=== PATIENT | female | born 1975 | race Hispanic/Latino ===

== ENCOUNTER 2016-06-29 07:26 | Outpatient (CLI) | payer BC ==
[2016-06-29 08:32] LABS: Blood Urea Nitrogen 12 mg/dL (7-17)
[2016-06-29] MEDS ORDERED: NACL ONE (09:37)
--- NOTE | 2016-06-29 11:18 | Cat Scan Report ---
CT of the chest with IV contrast. Findings: Comparison is made to the previous study performed on January 04, 2016. The left upper lobe bronchiectasis and pulmonary parenchymal density/scarring is unchanged compared to previous study. Minimal pleural thickening laterally is also stable. There are no pulmonary nodules or masses. Mediastinum and hilar regions are unremarkable. There is no pleural fluid. No axillary adenopathy is seen. No suspicious bony findings are seen. Impression: No evidence of metastatic disease. Stable left upper lobe parenchymal scarring, bronchiectasis, and left pleural scarring.
--- NOTE | 2016-06-29 11:23 | Cat Scan Report ---
CT of the abdomen and pelvis with IV and oral contrast. Findings: Comparison is made to previous study on January 04, 2016. The liver and spleen are normal in size and configuration with no focal abnormalities. The pancreas, and adrenal glands are normal. The kidneys are normal in size and configuration with no evidence of hydronephrosis. Bilateral adnexal cysts are again present, smaller on the right with no appreciable change on the left. There no abnormal fluid collections or mesenteric inflammatory changes. There are no suspicious bony findings. Impression: No evidence of metastatic disease. Bilateral adnexal cysts are again noted with minimal interval change in size on the right.
--- NOTE | 2016-06-29 14:08 | Nuclear Medicine Report ---
BONE SCAN: History: Malignant neoplasm of left breast. Comparison: 01/04/16. After injection of isotope, gamma camera imaging of the bony system was done. There is a normal uptake of isotope throughout the bony structures without areas of significantly increased or decreased uptake. Normal uptake in the urinary system is seen. IMPRESSION: Normal bone scan.
== END 2016-06-29 07:27 | disposition home or self-care (01) ==
LOC: NM 07:26
PROVIDERS: ATTEND Internal Medicine Hematology & Oncology
DX: C50.812 Malignant neoplasm of overlapping sites of left female breast (principal); N83.8 Other noninflammatory disorders of ovary, fallopian tube and broad ligament
CPT/HCPCS: 36415; 71260; 74177; 78306; 82565; 84520; A9503; Q9967

== ENCOUNTER 2017-01-20 08:42 | Outpatient (CLI) | payer BC ==
[2017-01-20 10:00] LABS: Blood Urea Nitrogen 15 mg/dL (7-17)
[2017-01-20] MEDS ORDERED: NACL ONE (10:51)
--- NOTE | 2017-01-20 14:06 | Nuclear Medicine Report ---
Whole body bone scan: Malignancy left breast. Surgery and radiation treatment. Following injection of radionuclide whole body images were obtained approximately 3 hours. There is activity in the urinary tract and a relatively good bone to background ratio. Comparison is made to her prior scan on June 29, 2016. On the current examination there is a focal area of uptake overlying either the medial left clavicle or the left first rib which was not previously present. A focal area of uptake previously present at the right costovertebral junction is no longer identified. The remainder of the bone scan is unchanged and unremarkable. Review of recent CT scan does demonstrate focal bone separation of the anterior left first rib that was not present on her prior scan on June 29, 2016. Impressions: New area of uptake corresponds to apparent bone fracture of left first rib. Resolution of right fourth vertebral costal activity.
--- NOTE | 2017-01-20 16:35 | Cat Scan Report ---
CT CHEST, ABDOMEN AND PELVIS WITH CONTRAST INDICATION: Malignant neoplasm of overlapping sites of left breast. COMPARISON: 06/29/2016 CT. FINDINGS: Chest, abdomen and pelvis CT performed following oral contrast and intravenous administration of 100 cc of Omnipaque 300. CHEST: Stable heart and great vessels. Patent airway. No size significant adenopathy. Bilateral mastectomies and chronic left lung changes/possible postradiation fibrosis again noted as on axial image 105, series 2, amongst others. No new suspicious lung nodules. Normal thyroid. Slight nonspecific distal esophageal prominence/thickening. ABDOMEN: Approximately 1.5 cm hypodensity in the medial segment of the left hepatic lobe inferiorly on axial image 376, series 2 appears unchanged as from 06/16/2015 CT, axial image 339, series 2 and is again not clearly visible and isodense/possibly filled-in on the delayed phase. Remainder liver, spleen, gallbladder, pancreas, adrenals, aorta, IVC and kidneys remain within normal limits. No ascites or significant adenopathy. Opacified GI tract nonobstructive and within normal limits. Normal appendix. Mild colonic stool. Tiny fat containing umbilical hernia. PELVIS: Simple attenuation pelvic free fluid has slightly increased since the prior exam as also adnexal/posterior pelvic cysts measuring up to approximately 3 cm as on axial image 534, series 2, amongst others. Urinary bladder and the uterus again appear within normal limits. Rectosigmoid stool. No size significant adenopathy. Slight lumbar levoscoliosis apex about L3-L4. Few lower thoracic inferior endplate irregularities or Schmorl's nodes. CONCLUSION: No CT evidence of metastatic disease with various incidental findings, as above. Thank you for the opportunity to participate in this patient's care.
== END 2017-01-20 08:43 | disposition home or self-care (01) ==
LOC: NM 08:42
PROVIDERS: ATTEND Internal Medicine Hematology & Oncology
DX: C50.812 Malignant neoplasm of overlapping sites of left female breast (principal); K42.9 Umbilical hernia without obstruction or gangrene; N94.89 Other specified conditions associated with female genital organs and menstrual cycle; M41.86 Other forms of scoliosis, lumbar region; Z90.13 Acquired absence of bilateral breasts and nipples
CPT/HCPCS: 36415; 71260; 74177; 78306; 82565; 84520; A9503; Q9967

== ENCOUNTER 2017-04-27 07:37 | Outpatient (CLI) | payer BC ==
--- NOTE | 2017-04-27 13:40 | PET Report ---
PET/CT:04/27/17 07:37:00 CLINICAL: Breast cancer restaging. RADIOPHARMACEUTICAL: 14.55mCi F18-FDG. COMPARISON: CT CAP 01/20/17 and PET/CT 05/13/11 TECHNIQUE- Following intravenous injection of F-18 FDG and an approximately 60 minute uptake period, CT and PET images from the mid skull to the upper thighs were acquired with the patient in the fasted state. No contrast was administered. The CT protocol used for this PET CT study is designed for attenuation correction and anatomic localization of PET abnormalities. This petrographer CT is not desired to produce and cannot replace, xlvta-us-myk-art diagnostic CT scans with specific imaging protocols for different body parts and indications. Plasma glucose at the time of this test: 93g/dl. The standardized uptake values (SUV) are normalized to patient body weight and indicate the highest activity concentration (SUV max) in a given disease site. FINDINGS: Brain--Physiologic FDG uptake in the visualized regions of the brain. Neck--Physiologic FDG uptake . Chest--Physiologic FDG uptake in mediastinal blood pool and myocardium. Lungs--No abnormal uptake. No pulmonary nodule or mass. Stable left upper lobe scarring. Pleura/pericardium--No abnormal uptake. Thoracic nodes--No abnormal uptake. Hepatobiliary--No abnormal uptake. Liver background SUV mean, as a reference for comparing FDG studies, is 2.1 compared to 2.9 on the last exam. No liver mass. Spleen--No abnormal uptake. Pancreas--No abnormal uptake. Adrenal Glands--No abnormal uptake. Kidneys/Ureters/Bladder--No abnormal uptake. Abdominopelvic Nodes--No abnormal uptake. Bowel/Peritoneum/Mesentery--No abnormal uptake. Pelvic organs--No abnormal uptake. Bones/Soft Tissues--No abnormal uptake. No suspicious bone lesion. A benign Schmorl's node of the T10 vertebral body at the inferior endplate. Other findings: Status post bilateral mastectomy and left axillary node dissection. A 4.5 cm non-FDG avid right ovarian cyst measures 30 Hounsfield units in density and has a smooth thin wall. Sigmoid diverticulosis but no signs of diverticulitis. IMPRESSION- 1. Negative study with no evidence of disease recurrence or metastasis.2. Stable left upper lobe lung post radiation scar. 3. A probably benign and possibly hemorrhagic 4.5 cm cyst of the right ovary. Recommend correlation with endovaginal ultrasound.
== END 2017-04-27 07:38 | disposition home or self-care (01) ==
LOC: PET 07:37
PROVIDERS: ATTEND Internal Medicine Hematology & Oncology
DX: C50.812 Malignant neoplasm of overlapping sites of left female breast (principal); K57.30 Diverticulosis of large intestine without perforation or abscess without bleeding; J98.4 Other disorders of lung; M51.44 Schmorl's nodes, thoracic region; R79.89 Other specified abnormal findings of blood chemistry; Z90.13 Acquired absence of bilateral breasts and nipples
CPT/HCPCS: 78815; 82962; A9552

== ENCOUNTER 2017-10-19 07:20 | Outpatient (CLI) | payer BC ==
--- NOTE | 2017-10-19 16:05 | PET Report ---
PET/CT:10/19/17 07:20:00 CLINICAL: Breast cancer restaging. RADIOPHARMACEUTICAL: 15.147mCi F18-FDG. COMPARISON: 04/27/17 PET/CT TECHNIQUE- Following intravenous injection of F-18 FDG and an approximately 60 minute uptake period, CT and PET images from the mid skull to the upper thighs were acquired with the patient in the fasted state. No contrast was administered. The CT protocol used for this PET CT study is designed for attenuation correction and anatomic localization of PET abnormalities. This physical education professor CT is not desired to produce and cannot replace, pwhhy-zd-qua-art diagnostic CT scans with specific imaging protocols for different body parts and indications. Plasma glucose at the time of this test: 99g/dl. The standardized uptake values (SUV) are normalized to patient body weight and indicate the highest activity concentration (SUV max) in a given disease site. FINDINGS: Brain--Physiologic FDG uptake in the visualized regions of the brain. Neck--Physiologic FDG uptake . Chest--Physiologic FDG uptake in mediastinal blood pool and myocardium. Lungs--No abnormal uptake. Stable left upper lobe parenchymal lung scar. No pulmonary nodule or mass. Pleura/pericardium--No abnormal uptake. Thoracic nodes--No abnormal uptake. Hepatobiliary--No abnormal uptake. Liver background SUV mean, as a reference for comparing FDG studies, is 2.3 compared to 2.1 on the last exam. No liver mass. Spleen--No abnormal uptake. Pancreas--No abnormal uptake. Adrenal Glands--No abnormal uptake. Kidneys/Ureters/Bladder--No abnormal uptake. Abdominopelvic Nodes--No abnormal uptake. Bowel/Peritoneum/Mesentery--No abnormal uptake. Pelvic organs--No abnormal uptake. A previously described 4.5 cm high density right ovarian cyst has resolved. Bones/Soft Tissues--No abnormal uptake in no suspicious bone lesion. Old healed fractures of left ribs one, three, four and five. Other findings: Status post bilateral mastectomy. IMPRESSION- 1. Negative study with no evidence of disease recurrence or metastasis.2. Stable left upper lobe lung scar. 3. Resolution of right hemorrhagic ovarian cyst.
== END 2017-10-19 07:21 | disposition home or self-care (01) ==
LOC: PET 07:20
PROVIDERS: ATTEND Internal Medicine Hematology & Oncology
DX: C50.812 Malignant neoplasm of overlapping sites of left female breast (principal); R52 Pain, unspecified; E53.8 Deficiency of other specified B group vitamins; J98.4 Other disorders of lung; Z90.13 Acquired absence of bilateral breasts and nipples
CPT/HCPCS: 78815; 82962; A9552

== ENCOUNTER 2018-05-10 09:13 | Outpatient (CLI) | payer BC ==
--- NOTE | 2018-05-14 12:55 | PET Report ---
PET/CT:05/10/18 09:13:00 CLINICAL: Breast cancer restaging. RADIOPHARMACEUTICAL: 15.158mCi F18-FDG. COMPARISON: 10/19/17 PET/CT TECHNIQUE- Following intravenous injection of F-18 FDG and an approximately 60 minute uptake period, CT and PET images from the mid skull to the upper thighs were acquired with the patient in the fasted state. No contrast was administered. The CT protocol used for this PET CT study is designed for attenuation correction and anatomic localization of PET abnormalities. This custodial officer CT is not desired to produce and cannot replace, cfewl-lz-qsj-art diagnostic CT scans with specific imaging protocols for different body parts and indications. Plasma glucose at the time of this test: 81g/dl. The standardized uptake values (SUV) are normalized to patient body weight and indicate the highest activity concentration (SUV max) in a given disease site. FINDINGS: Brain--Physiologic FDG uptake in the visualized regions of the brain. Neck--Physiologic FDG uptake in mucosal structures. No mass or lymphadenopathy. Chest--Physiologic FDG uptake in mediastinal blood pool and myocardium. Status post bilateral mastectomy. Lungs--No abnormal uptake. No pulmonary nodule or mass. Stable left upper lobe benign scar. Pleura/pericardium--No abnormal uptake. Thoracic nodes--No abnormal uptake. Hepatobiliary--No abnormal uptake. Liver background SUV mean, as a reference for comparing FDG studies, is 2.4 compared to 2.3 on the last exam. No liver mass. Spleen--No abnormal uptake. Pancreas--No abnormal uptake. Adrenal Glands--No abnormal uptake. Kidneys/Ureters/Bladder--No abnormal uptake. Abdominopelvic Nodes--No abnormal uptake. Bowel/Peritoneum/Mesentery--No abnormal uptake. Pelvic organs--No abnormal uptake. Bones/Soft Tissues--No abnormal uptake and no suspicious bone lesion. IMPRESSION- Negative study with no evidence of disease recurrence or metastasis.
== END 2018-05-10 09:14 | disposition home or self-care (01) ==
LOC: PET 09:13
PROVIDERS: ATTEND Internal Medicine Hematology & Oncology
DX: C50.812 Malignant neoplasm of overlapping sites of left female breast (principal)
CPT/HCPCS: 78815; 82962; A9552

== ENCOUNTER 2018-11-08 07:43 | Outpatient (CLI) | payer BC ==
--- NOTE | 2018-11-08 16:35 | PET Report ---
PET/CT Scan 11/08/2018 11/08/2018 8:59 AM INDICATION: Restaging of breast cancer. TECHNIQUE: 13.213 mCi of F18-FDG was administered intravenously at 08:10. Imaging was performed at 09:00. Glucos e level was 85 mg/dl just prior to the exam. Imaging is performed from the skull base to the proxima l thighs. CT imaging is obtained for attenuation correction and anatomic localization. COMPARISON: PET/CT from 05/10/2018. FINDINGS: Head/neck: No suspicious sites of metabolic activity. No significant CT abnormality. Chest: There has been a prior bilateral mastectomy. Mildly increased uptake along the left chest wall is consistent with prior surgery. No suspicious mass is identified in this location. There is simila r scarring/atelectasis along the left upper lobe with stable bronchiectasis. No additional significan t CT abnormality is seen. No other suspicious sites of metabolic activity are identified. Abdomen/pelvis: No suspicious sites of metabolic activity. No significant CT abnormality. Lower extremities: No suspicious sites of metabolic activity. No significant CT abnormality. Bones: No suspicious sites of metabolic activity. No aggressive appearing osseous lesion. IMPRESSION: 1. No evidence of FDG avid neoplastic disease. 2. Stable chronic changes in the chest as above with probable postoperative changes along the left ch est wall. Signer Name: New Devi MD Signed: 11/08/2018 4:31 PM Workstation Name: [id number]
== END 2018-11-08 07:44 | disposition home or self-care (01) ==
LOC: PET 07:43
PROVIDERS: ATTEND Internal Medicine Hematology & Oncology
DX: C50.812 Malignant neoplasm of overlapping sites of left female breast (principal)
CPT/HCPCS: 78815; 82962; A9552

== ENCOUNTER 2019-07-04 09:31 | Outpatient (CLI) | payer BC ==
--- NOTE | 2019-07-04 13:56 | PET Report ---
PET/CT HISTORY: BREAST CANCER. Restaging of left breast cancer TECHNIQUE: The patient's fasting blood glucose was 91. The patient weighed 140 lbs. The patient wa s injected with 13.26 mCi of FDG in the right antecubital fossa at 1003 and imaging was started at 10 58. The patient was imaged from the skull base to the thighs. All CT scans at this location are perf ormed using CT dose reduction for ALARA by means of automated exposure control. Images were reviewed on a workstation. COMPARISON: 11/08/2018 FINDINGS: IMAGED BRAIN: Physiologic FDG uptake. NECK: Physiologic FDG uptake. CHEST WALL: Physiologic FDG uptake. Stable bilateral mastectomy changes. No recurrent chest wall mas s or extra thoracic adenopathy. MEDIASTINUM: Physiologic FDG uptake. LUNGS: Stable scarring in the left upper lobe presumably from radiation therapy. No new pulmonary le petty.. HEPATOBILIARY: Physiologic FDG uptake. PANCREAS: Physiologic FDG uptake. SPLEEN: Physiologic FDG uptake. KIDNEYS/BLADDER: Physiologic FDG uptake. ADRENAL GLANDS: Physiologic FDG uptake. GI/MESENTERY: Physiologic FDG uptake. PELVIC VISCERA: Physiologic FDG uptake. LYMPH NODES: Physiologic FDG uptake. OSSEOUS STRUCTURES: Physiologic FDG uptake. ADDITIONAL FINDINGS: None. IMPRESSION: Negative PET/CT with no evidence for recurrence or metastasis. Signer Name: Neptali Savage Jr, MD Signed: 07/04/2019 1:52 PM Workstation Name: [id number]
== END 2019-07-04 09:32 | disposition home or self-care (01) ==
LOC: PET 09:31
PROVIDERS: ATTEND Internal Medicine Hematology & Oncology
DX: C50.812 Malignant neoplasm of overlapping sites of left female breast (principal)
CPT/HCPCS: 78815; 82962; A9552

== ENCOUNTER 2020-02-20 12:13 | Outpatient (CLI) | payer BC ==
--- NOTE | 2020-02-20 15:04 | PET Report ---
PET/CT HISTORY: C50.812. Restaging of left breast cancer TECHNIQUE: The patient's fasting blood glucose was 95. The patient weighed 140 lbs. The patient wa s injected with 14.2 mCi of FDG in the right antecubital fossa at 1250 hours and imaging was started at 1341 hours. The patient was imaged from the skull base to the thighs. All CT scans at this locati on are performed using CT dose reduction for ALARA by means of automated exposure control. Images wer e reviewed on a workstation. COMPARISON: 07/04/2019 FINDINGS: IMAGED BRAIN: [Physiologic FDG uptake. NECK: Physiologic FDG uptake. CHEST WALL: Physiologic FDG uptake. Stable bilateral mastectomy changes. MEDIASTINUM: Physiologic FDG uptake. LUNGS: Physiologic FDG uptake. Stable scarring in the lingula. No suspicious pulmonary lesion. HEPATOBILIARY: Physiologic FDG uptake. PANCREAS: Physiologic FDG uptake. SPLEEN: Physiologic FDG uptake. KIDNEYS/BLADDER: Physiologic FDG uptake. ADRENAL GLANDS: Physiologic FDG uptake. GI/MESENTERY: Physiologic FDG uptake. PELVIC VISCERA: Physiologic FDG uptake. LYMPH NODES: Physiologic FDG uptake. OSSEOUS STRUCTURES: Physiologic FDG uptake. Stable left anterior rib deformities. No suspicious bony lesion. ADDITIONAL FINDINGS: None. IMPRESSION: Negative PET CT. Stable findings since 07/04/2019. Signer Name: Neptali Savage Jr, MD Signed: 02/20/2020 3:00 PM Workstation Name: [id number]
== END 2020-02-20 12:14 | disposition home or self-care (01) ==
LOC: PET 12:13
PROVIDERS: ATTEND Internal Medicine Hematology & Oncology
DX: C50.812 Malignant neoplasm of overlapping sites of left female breast (principal)
CPT/HCPCS: 78815; 82962; A9552

== ENCOUNTER 2020-09-24 07:29 | Outpatient (CLI) | payer BC ==
--- NOTE | 2020-09-24 10:51 | PET Report ---
PET/CT HISTORY: C50.812. Restaging of left breast cancer TECHNIQUE: The patient's fasting blood glucose was 83. The patient weighed 140 lbs. The patient wa s injected with 14.5 mCi of FDG in the right antecubital fossa at 0810 hours and imaging was started at 0902 hours. The patient was imaged from the skull base to the thighs. All CT scans at this locati on are performed using CT dose reduction for ALARA by means of automated exposure control. Images wer e reviewed on a workstation. COMPARISON: 02/20/2020 FINDINGS: IMAGED BRAIN: Physiologic FDG uptake. NECK: Physiologic FDG uptake. CHEST WALL: Physiologic FDG uptake. Stable bilateral mastectomy changes. MEDIASTINUM: Physiologic FDG uptake. LUNGS: Physiologic FDG uptake. Stable radiation changes in the left lung. No suspicious pulmonary no dule or mass has developed. HEPATOBILIARY: Physiologic FDG uptake. PANCREAS: Physiologic FDG uptake. SPLEEN: Physiologic FDG uptake. KIDNEYS/BLADDER: Physiologic FDG uptake. ADRENAL GLANDS: Physiologic FDG uptake. GI/MESENTERY: Physiologic FDG uptake. PELVIC VISCERA: Physiologic FDG uptake. LYMPH NODES: Physiologic FDG uptake. OSSEOUS STRUCTURES: Physiologic FDG uptake. Multiple chronic left rib fractures are again noted. No new suspicious bony lesion. ADDITIONAL FINDINGS: None. IMPRESSION: Negative PET CT. Stable findings since 02/20/2020 exam with no evidence for disease recurrence or me tastasis. Signer Name: Neptali Savage Jr, MD Signed: 09/24/2020 10:47 AM Workstation Name: [id number]
== END 2020-09-24 07:30 | disposition home or self-care (01) ==
LOC: PET 07:29
PROVIDERS: ATTEND Internal Medicine Hematology & Oncology
DX: C50.812 Malignant neoplasm of overlapping sites of left female breast (principal); Z90.12 Acquired absence of left breast and nipple; Z90.11 Acquired absence of right breast and nipple
CPT/HCPCS: 78815; 82962; A9552

== ENCOUNTER 2021-06-22 08:37 | Outpatient (CLI) | payer BC ==
--- NOTE | 2021-06-22 10:54 | Cat Scan Report ---
CT CHEST, ABDOMEN, AND PELVIS WITH CONTRAST INDICATION / CLINICAL INFORMATION: C50.812 BREAST CANCER OMNI 300 100 ML. TECHNIQUE: Axial CT images were obtained through the chest, abdomen, and pelvis after 100 cc of Omnip aque [address] scans at this location are performed using CT dose reduction for ALARA b y means of automated exposure control. COMPARISON: PET/CT 09/24/2020 FINDINGS: HEART: No significant abnormality. CORONARY ARTERY CALCIFICATION: Mild. THORACIC AORTA: No significant abnormality. MEDIASTINUM / CARLIE: No significant abnormality. No pathologic adenopathy is detected. PLEURA: No pleural effusion. No pneumothorax. LUNGS: Stable scarring in the anterior left upper lobe probably related to previous radiation changes . The lungs are clear otherwise. No suspicious nodule or mass has developed. ADDITIONAL CHEST FINDINGS: Stable bilateral mastectomy changes. LIVER: No significant abnormality. GALLBLADDER: No significant abnormality. BILE DUCTS: No significant abnormality. PANCREAS: No significant abnormality. SPLEEN: No significant abnormality. ADRENALS: No significant abnormality. RIGHT KIDNEY / URETER: No significant abnormality. LEFT KIDNEY / URETER: No significant abnormality. STOMACH and SMALL BOWEL: No significant abnormality. COLON: No significant abnormality. There is moderate fecal matter in the colon and rectum. APPENDIX: Not clearly identified. PERITONEUM: No free fluid. No free air. No fluid collection. LYMPH NODES: No significant adenopathy. AORTA / ARTERIES: No significant abnormality. IVC / VEINS: No significant abnormality. URINARY BLADDER: No significant abnormality. REPRODUCTIVE ORGANS: No significant abnormality. ADDITIONAL FINDINGS: None. SKELETAL SYSTEM: Multiple chronic left rib fractures are again noted. No suspicious or aggressive bon y lesion is detected. IMPRESSION: Stable findings since PET/CT dated 09/24/2020 with no evidence for disease recurrence or metastasis. Signer Name: Neptali Savage Jr, MD Signed: 06/22/2021 10:50 AM Workstation Name: [id number]
--- NOTE | 2021-06-22 13:40 | Nuclear Medicine Report ---
NUCLEAR MEDICINE WHOLE BODY BONE IMAGING STUDY. HISTORY: C50.812 COMPARISON: No prior bone scans are available for comparison. Comparison is made with CT chest abdomen and pelvi s from earlier today. TECHNIQUE: The patient was administered 26.3 mCi of technetium 99m labeled MDP intravenously. FINDINGS: There is bilateral, relatively symmetric articular activity which is most likely degenerative given t he distribution and symmetry. Abnormal activity along the lateral left rib cage corresponds to chronic fractures on the recent CT. There is normal soft tissue activity in the kidneys and urinary bladder. IMPRESSION: No scintigraphic evidence of osseous metastatic disease. Signer Name: Saran Garza MD Signed: 06/22/2021 1:35 PM Workstation Name: [id number]
== END 2021-06-22 08:38 | disposition home or self-care (01) ==
LOC: NM 08:37
PROVIDERS: ATTEND Internal Medicine Hematology & Oncology
DX: S22.42XA Multiple fractures of ribs, left side, initial encounter for closed fracture (principal); C50.812 Malignant neoplasm of overlapping sites of left female breast; I25.10 Atherosclerotic heart disease of native coronary artery without angina pectoris; X58.XXXA Exposure to other specified factors, initial encounter; Y93.89 Activity, other specified; Y92.89 Other specified places as the place of occurrence of the external cause; Y99.8 Other external cause status
CPT/HCPCS: 71260; 74177; 78306; A9503; Q9967